=== PATIENT | male | born 1965 | race Caucasian/White ===

== ENCOUNTER 2018-01-07 07:08 | Day surgery (SDC) | payer BC ==
[2018-01-03 13:49] VITALS: BMI 37.0
[2018-01-07 07:56] VITALS: BP 129/80; TEMP 98
[2018-01-07] MEDS ORDERED: Iopamidol-M 200 41% 20 ML VIAL ONE (09:32)
--- NOTE | 2018-01-07 10:41 | RAD ---
LUMBAR MYELOGRAM: HISTORY: Lumbar spinal stenosis. COMPARISON: None. EXPOSURE: 1 minute. 733.8 mGy*^m2. FINDINGS: Technically successful lumbar puncture for intrathecal contrast administration via fluoroscopic salty nce. A total of 10 cc of Isovue 200M contrast was administered intrathecally. The patient tolerated the procedure well. No immediate or post procedure complications. TECHNIQUE: Consent was obtained to perform a lumbar puncture for intrathecal contrast administration. A 2-view lumbar spine block setter gypsum radiograph was performed. There is evidence of dorsal column stimulators entering the thecal sac near the thoracolumbar junction. Dorsal column stimulators are incompletely evaluate d. There is a prosthesis at the L4-L5 level with unilateral right-sided transpedicular screw. Both screws appear to have some component of perihardware lucency. Refer to post myelogram CT for further details. Note, there are 5 lumbar-type vertebral bodies. The patient's back was evaluated. The L2-L3 level was deemed appropriate. The skin was prepped and draped in sterile fashion. 1% Lidocaine, buffered with sodium bicarbonate, was used for local anesth esia. Under fluoroscopic guidance, a 22-gauge spinal needle was advanced into the CSF space. The in ner stylette was removed. There was prompt flow of clear CSF into the hub of the needle. Via a shor t tubing catheter, a total of 10 cc of Isovue 200M contrast was administered intrathecally. The manisha ent tolerated the procedure well. No immediate or post procedure complications. IMPRESSION: Technically successful lumbar puncture for intrathecal contrast administration. POS: [facility]
--- NOTE | 2018-01-07 11:13 | CT ---
CT LUMBAR MYELOGRAM: INDICATION: History of spinal stenosis. FINDINGS: Comparison is made with lumbar spine radiograph dated 11/29/04. There are 5 lumbar-type vertebrae pre sent on this radiograph. There is postoperative change of an intervertebral disk replacement at L4-5 with right unilateral pos terolateral spine instrumentation. There is also a dorsal column stimulator entering into the spinal canal at T12-L1 projecting beyond the field of view of the examination. The bone is seen to terminate at approximately L2. At the L5-S1 level, there is no appreciable central canal or neural foraminal narrowing. There is mo derate right and mild left facet joint degenerative change. At L4-5, there is no appreciable central canal or neural foraminal narrowing. At L3-4, there is no appreciable central canal or neural foraminal narrowing. At L2-3, there is a right paracentral disk protrusion causing effacement of the right ventral lateral thecal sac without definite nerve root impingement. At the L1-2 level, there is no appreciable central canal or neural foraminal narrowing. At T12-L1, there is no appreciable central canal or neural foraminal narrowing. At T11-T12, there is no appreciable central canal or neural foraminal narrowing. IMPRESSION: 1. Postoperative lumbar spine. 2. Right paracentral protrusion at L2-3 causing mild effacement of the right ventral lateral thecal sac without definite nerve root impingement. POS: [facility]
== END 2018-01-07 09:50 | disposition home or self-care (01) ==
LOC: RAD 07:08 → EDSTATUS 08:00 → RAD 09:50
PROVIDERS: ATTEND Nurse Practitioner Family
PROC: B01B1ZZ Fluoroscopy of Spinal Cord using Low Osmolar Contrast (ICD-10-PCS; principal; 2018-01-07)
DX: M48.062 Spinal stenosis, lumbar region with neurogenic claudication (principal); M10.061 Idiopathic gout, right knee; M10.012 Idiopathic gout, left shoulder; M10.011 Idiopathic gout, right shoulder; F17.290 Nicotine dependence, other tobacco product, uncomplicated; M96.1 Postlaminectomy syndrome, not elsewhere classified; Z98.1 Arthrodesis status; Z98.890 Other specified postprocedural states
CPT/HCPCS: 62304; 72132

== ENCOUNTER 2019-07-29 19:30 | Outpatient (CLI) | payer BC | END 2019-07-29 19:31 | disposition home or self-care (01) | LOC: SLEEPLAB 19:30 | PROVIDERS: ATTEND Internal Medicine Critical Care Medicine | DX: G47.33 Obstructive sleep apnea (adult) (pediatric) (principal) | CPT/HCPCS: 95811 ==